=== PATIENT | male | born 1990 | race Caucasian/White ===

== ENCOUNTER 2021-08-29 15:43 | Emergency (ER) | payer BC, SELFPAY ==
--- NOTE | 2021-08-29 15:59 | ED.EXTPRO ---
HPI - Extremity Problem General Chief complaint: Extremity Problem,Nontraumatic Stated complaint: pain in both arms,Rt thigh pain, tingling in hands Time Seen by Provider: 08/29/21 15:46 Source: patient and RN notes reviewed Mode of arrival: ambulatory Limitations: no limitations History of Present Illness Complaint: extremity pain Onset (ago): hour(s) (16) Pain Consistency: constant Location: left, right and upper extremity Quality: aching Relieving factors: nothing Exacerbating factors: range of motion and palpation Associated symptoms: denies other symptoms Related Data Allergies Allergy/AdvReac Type Severity Reaction Status Date / Time No Known Allergies Allergy Verified 08/29/21 16:00 Review of Systems Constitutional: Constitutional: Denies chills, Denies fever(s) and Denies weakness Cardiovascular: Cardiovascular: Denies chest pain and Denies radiating jaw, neck or arm pain Respiratory: Respiratory: Denies cough and Denies dyspnea Gastrointestinal: Gastrointestinal: Denies diarrhea, Denies nausea and Denies vomiting Musculoskeletal: Musculoskeletal: Reports as per [facility] Past Medical History Medical History (Updated 08/29/21 @ 17:27 by Ankit Harris MD) No active medical problems Surgical History Surgical History (Updated 08/29/21 @ 16:11 by Ankit Harris MD) No pertinent past surgical history Social History Social History (Updated 08/29/21 @ 16:11 by Ankit Harris MD) Smoking status: Former smoker Alcohol intake: current Alcohol use details: Socially Substance use: never Exam Const: General: healthy appearing, no acute distress and alert Nutritional Appearance: well nourished Orientation/consciousness: patient oriented x3 HENMT: Head: normal to inspection Ears: external ears normal Face and sinus: normal facial exam Mouth: Yes moist mucous membranes Eyes: Conjunctivae: conjunctivae normal Pupils: Equal, round and reactive pupils present EOM: EOMs intact bilaterally Neck: Neck: normal visual inspection and no lymphadenopathy Resp: Effort & Inspection: normal respiratory effort Auscultation: clear to auscultation bilaterally Cardio: Rate: regular rate Rhythm: regular rhythm GI: GI Palp: Yes Soft to palpation and No Tenderness to palpation present (GI) Auscultation: normal bowel sounds Back/Spine/Pelvis: Cervical Spine: cervical ROM normal Thoracic/Lumbar Spine: thoraco-lumbar ROM normal Skin: General skin exam: normal color Rashes: no rashes Neuro: General: patient oriented x3, moves all extremities, no meningeal signs, no focal motor deficits and CN's II-XI intact bilaterally Speech: normal speech Gait exam (Neuro): Normal gait present Extrem: General: normal exam except as noted Right upper extremity: shoulder/upper arm tenderness over the biceps tendon and elbow/forearm tenderness other ( over the anterior soft tissue forearm) Left upper extremity: shoulder/upper arm tenderness over the biceps tendon and normal ROM; no swelling, no ecchymosis and no unsual warmth and elbow/forearm tenderness other ( over the anterior soft tissue forearm) and normal ROM; no unusual warmth and no ecchymosis Psych: Appearance: grossly normal and well kempt Mental Status: mental status grossly normal Affect: normal affect Attitude: cooperative Thought content: Yes Normal thought content present Course Course Emergency Course: Patient significantly improved after 60 mg IM Toradol. Vital Signs Vital signs: Vital Signs Temperature 36.9 C 08/29/21 16:01 Pulse Rate 107 H 08/29/21 16:01 Respiratory Rate 20 08/29/21 16:01 Blood Pressure 143/93 H 08/29/21 16:01 Pulse Oximetry 97 08/29/21 16:01 Temperature 36.9 C 08/29/21 16:01 Pulse Rate 98 08/29/21 17:29 Respiratory Rate 16 08/29/21 17:29 Blood Pressure 126/81 08/29/21 17:29 Pulse Oximetry 96 08/29/21 17:29 MDM - Extremity (Nontraumatic) MDM Narrative Medical decision sujit
[2021-08-29 16:01] VITALS: BP 143/93; PULSE 107; RESP 20; TEMP 36.9; O2SAT 97
[2021-08-29] MEDS: KETOROLAC (*BKC) 60 MG/2 ML VIAL IM (16:34)
[2021-08-29 16:38] LABS: Basophils Absolute Auto 0.05 K/mm3 (0.00-0.10); Basophils Percent Auto 0.6 % (0.0-1.0); Eosinophils Absolute Auto 0.04 K/mm3 (0.02-0.50); Eosinophils Percent Auto 0.5 % (1.0-6.0); Hematocrit 47.1 % (40.0-54.0); Hemoglobin 16.1 g/dL (14.0-18.0); Immature Granulocyte Absolute 0.03 K/mm3 (0.00-0.00); Immature Granulocyte Percent A 0.4 % (0.0-0.0); Lymphocytes Absolute Auto 1.43 K/mm3 (1.10-4.50); Lymphocytes Percent Auto 17.6 % (18.0-42.0); Mean Corpuscular HGB Conc 34.2 g/dL (32.0-36.0); Mean Corpuscular Hemoglobin 28.3 pg (27.0-31.0); Mean Corpuscular Volume 82.9 fL (78.0-102.0); Mean Platelet Volume 11.3 fl (8.7-11.0); Monocytes Percent Auto 8.6 % (2.0-11.0); Neutrophils Absolute Auto 5.9 K/mm3 (1.7-7.2); Neutrophils Percent Auto 72.3 % (50.0-70.0); Platelet Count Result 245 K/mm3 (150-420); Red Blood Count 5.68 M/mm3 (4.70-6.10); Red Cell Distribution Width 11.9 % (11.6-14.4); White Blood Count 8.1 K/mm3 (4.8-10.8)
[2021-08-29 16:55] LABS: Creatine Kinase 58 U/L (39-308)
[2021-08-29 16:57] LABS: Alanine Aminotransferase 66 U/L (16-63); Albumin Level 3.9 g/dL (3.4-5.0); Alkaline Phosphatase 84 U/L (46-116); Anion Gap 9 mmol/L (8-16); Aspartate Amino Transferase 27 U/L (15-37); Bilirubin,Total 0.3 mg/dL (0.00-1.00); Blood Urea Nitrogen 9 mg/dL (7-18); CRP 1.1 mg/dL (0.0-0.9); Calcium 9.2 mg/dL (8.5-10.1); Carbon Dioxide 26 mmol/L (21-32); Chloride 101 mmol/L (98-108); Estimated CRCL calculation 103 ml/min; Estimated Glomerular Filt Rate > 60; Glucose 100 mg/dL (70-99); Magnesium 1.9 mg/dL (1.8-2.4); Osmolality Calculated 280 mOsm/kg (285-295); Potassium 4.1 mmol/L (3.5-5.1); Sodium 136 mmol/L (136-145); Total Protein 8.2 g/dL (6.4-8.2)
[2021-08-29 17:14] LABS: Influenza A QL RT-PCR Negative (Negative); Influenza B QL RT-PCR Negative (Negative); SARS-CoV-2 RNA PCR Negative (Negative)
[2021-08-29 17:29] VITALS: BP 126/81; PULSE 98; RESP 16; O2SAT 96
== END 2021-08-29 17:36 | disposition home or self-care (01) ==
PROVIDERS: Emergency Provider Emergency Medicine; PCP Physician Assistant
DX: M79.10 Myalgia, unspecified site (principal); Z20.822 Contact with and (suspected) exposure to COVID-19
CPT/HCPCS: 36415; 80053; 82550; 83735; 85025; 86140; 87502; 96372; 99283; C9803; J1885; U0003; U0005

== ENCOUNTER 2022-04-29 16:16 | Emergency (ER) | payer OTHER, SELFPAY ==
[2022-04-29 16:19] VITALS: BP 138/101; PULSE 82; RESP 18; TEMP 36.9
--- NOTE | 2022-04-29 17:24 | ED.DENTAL ---
HPI - Dental/Oral General Chief complaint: Unspecified Stated complaint: tooth ache Time Seen by Provider: 04/29/22 16:20 Source: patient and RN notes reviewed Mode of arrival: ambulatory Limitations: no limitations History of Present Illness Complaint: tooth pain Location: Tooth # (32) Onset (ago): day(s) (1) Duration: constant Severity: mild Severity scale (1-10): 4 Relieving factors: NSAIDs Exacerbating factors: chewing Associated symptoms: gum swelling and ear pain Related Data Allergies Allergy/AdvReac Type Severity Reaction Status Date / Time No Known Allergies Allergy Verified 08/29/21 16:00 Review of Systems Review of Systems: All systems reviewed & are unremarkable except as noted in HPI and below Constitutional: Constitutional: Reports no additional constitutional complaints Eyes: Eyes: Reports no additional eye complaints ENT: Reports system reviewed and no additional complaints, except as documented Cardiovascular: Cardiovascular: Reports no additional cardiovascular complaints Respiratory: Respiratory: Reports no additional respiratory complaints Gastrointestinal: Gastrointestinal: Reports no additional gastrointestinal complaints Musculoskeletal: Musculoskeletal: Reports no additional musculoskeletal complaints Integumentary/Breasts: Skin/Breast: Reports system reviewed and no additional complaints, except as docu Neurologic: Reports system reviewed and no additional complaints, except as documented Psychiatric: Psychiatric: Reports no additional psychiatric complaints Endocrine: Endocrine: Reports no additional endocrine complaints Hematologic/Lymphatic: Hematologic/Lymphatic: Reports no additional hematologic/lymphatic complaints Allergic/Immunologic: Allergic/Immunologic: Reports no additional allergic/immunologic complaints PMFSH Past Medical History Medical History No active medical problems Tooth ache Surgical History Surgical History No pertinent past surgical history Social History Social History Smoking status: Former smoker Alcohol intake: current Alcohol use details: Socially Substance use: never Exam Const: General: no acute distress and well nourished Nutritional Appearance: well nourished Orientation/consciousness: patient oriented x3 Limitations: no limitations HENMT: Head: normal to inspection Ears: external ears normal, TM's normal bilaterally and EAC's normal Face/Nose/Sinus: Normal external nose present, Normal nares present, normal facial exam and sinuses nontender Face and sinus: normal facial exam and sinuses nontender Mouth: Yes Normal oral and palatal mucosa present and Yes moist mucous membranes Teeth and gingiva: dentition normal (right lower molar minimal gum redness and tenderness.) Throat: posterior oropharynx normal Eyes: Conjunctivae: conjunctivae normal Pupils: Equal, round and reactive pupils present EOM: EOMs intact bilaterally Neck: Neck: normal visual inspection, no lymphadenopathy and no meningeal signs Chest: Chest palpation & inspection: normal inspection of the chest Resp: Effort & Inspection: normal respiratory effort Auscultation: clear to auscultation bilaterally Cardio: Rate: regular rate Rhythm: regular rhythm GI: GI Palp: Yes Soft to palpation and No Tenderness to palpation present (GI) Auscultation: normal bowel sounds : General: Yes bladder normal to palpation and Yes no CVA tenderness Back/Spine/Pelvis: Back: no CVA tenderness Skin: General skin exam: normal color Rashes: no rashes Wounds: no wounds Neuro: General: patient oriented x3, moves all extremities, no meningeal signs, no focal motor deficits and CN's II-XI intact bilaterally Cranial nerves: Yes Equal, round and reactive pupils present and Yes Nystagmus not present Speech: n
[2022-04-29] MEDS: IBUPROFEN 400 MG TABLET 800 MG PO (17:35)
[2022-04-29 17:38] VITALS: BP 138/100; PULSE 82; RESP 20; TEMP 35.7; O2SAT 97
== END 2022-04-29 17:50 | disposition home or self-care (01) ==
PROVIDERS: Emergency Provider Emergency Medicine; PCP Physician Assistant
DX: K08.89 Other specified disorders of teeth and supporting structures (principal); Z87.891 Personal history of nicotine dependence
CPT/HCPCS: 99283; A9270

== ENCOUNTER 2023-05-14 18:56 | Emergency (ER) | payer OTHER, SELFPAY ==
[2023-05-14 18:56] VITALS: BP 150/102; PULSE 90; RESP 18; TEMP 35.7; O2SAT 100
--- NOTE | 2023-05-14 19:30 | ED.GENADULT ---
HPI - General Adult General Chief complaint: Anxiety Stated complaint: htn Time Seen by Provider: 05/14/23 19:10 History of Present Illness HPI narrative: Fuad is a 32m that presented to the ED with concerns of blood pressure being elevated. It was high at an urgent care visit and at a dentist appointment. He then bought a home wrist cuff that persistently read 150-160 systolic. There is CP, dyspnea, headache or lightheadedness. Related Data Home Medications Medication Instructions Recorded Confirmed amoxicillin 500 mg capsule 500 mg PO DAILY 05/14/23 05/14/23 Allergies Allergy/AdvReac Type Severity Reaction Status Date / Time No Known Allergies Allergy Verified 05/14/23 18:58 Review of Systems Review of Systems: All systems reviewed & are unremarkable except as noted in HPI and below PMFSH Past Medical History Medical History No active medical problems Tooth ache Surgical History Surgical History No pertinent past surgical history Social History Social History Smoking status: Former smoker Alcohol intake: current Alcohol use details: Socially Substance use: never Substance use type: does not use Exam Const: General: cooperative, healthy appearing, comfortable, no acute distress, well developed, alert, awake and Physically active Orientation/consciousness: oriented to person, oriented to place and oriented to time HENMT: Head: normal to inspection, normocephalic and atraumatic Ears: hearing grossly normal bilaterally and external ears normal Face/Nose/Sinus: Normal external nose present Eyes: General: appearance normal, both eyes and all related structures Periorbital: periorbital findings normal Sclera: sclerae normal Pupils: Equal, round and reactive pupils present Neck: Neck: normal visual inspection Chest: Chest palpation & inspection: normal inspection of the chest Resp: Effort & Inspection: normal respiratory effort, able to speak in complete sentences and no respiratory distress Auscultation: clear to auscultation bilaterally Cardio: Jugular venous distension: no JVD Rate: regular rate Rhythm: regular rhythm Skin: General skin exam: normal color and no rashes or lesions noted Neuro: General: oriented to person, oriented to place and oriented to time Cranial nerves: Yes Equal, round and reactive pupils present Extrem: General: normal to inspection Course Course Emergency Course: manual BP was 142/70 Vital Signs Vital signs: Vital Signs Temperature 96.3 F L 05/14/23 18:56 Pulse Rate 90 05/14/23 18:56 Respiratory Rate 18 05/14/23 18:56 Blood Pressure 150/102 H 05/14/23 18:56 Pulse Oximetry 100 05/14/23 18:56 Oxygen Delivery Room Air 05/14/23 18:56 Temperature 96.3 F L 05/14/23 18:56 Pulse Rate 90 05/14/23 18:56 Respiratory Rate 18 05/14/23 18:56 Blood Pressure 150/102 H 05/14/23 18:56 Pulse Oximetry 100 05/14/23 18:56 Oxygen Delivery Room Air 05/14/23 18:56 Medical Decision Making Vital Signs Vital Signs: Vital Signs Temperature 96.3 F L 05/14/23 18:56 Pulse Rate 90 05/14/23 18:56 Respiratory Rate 18 05/14/23 18:56 Blood Pressure 150/102 H 05/14/23 18:56 Pulse Oximetry 100 05/14/23 18:56 Oxygen Delivery Room Air 05/14/23 18:56 Temperature 96.3 F L 05/14/23 18:56 Pulse Rate 90 05/14/23 18:56 Respiratory Rate 18 05/14/23 18:56 Blood Pressure 150/102 H 05/14/23 18:56 Pulse Oximetry 100 05/14/23 18:56 Oxygen Delivery Room Air 05/14/23 18:56 Discharge Plan Discharge Clinical Impression: Essential hypertension Patient Disposition: Home, Self-Care Condition: Stable Instructions: DASH Eating Plan (ED) Prescriptions: New lisinopril 10 mg tablet 10 mg PO DAILY Qty: 20 0RF lisino
--- NOTE | 2023-05-14 19:39 | PC.NURSE ---
Manual BP taken at 142/[address] Cameron. Explained POC for f/u c pt and he stated understanding.
[2023-05-14 19:41] VITALS: BP 142/70; PULSE 84; RESP 18; O2SAT 98
== END 2023-05-14 19:44 | disposition home or self-care (01) ==
PROVIDERS: Emergency Provider Family Medicine; PCP Physician Assistant
DX: I10 Essential (primary) hypertension (principal); Z87.891 Personal history of nicotine dependence
CPT/HCPCS: 99283

== ENCOUNTER 2023-11-16 11:06 | Emergency (ER) | payer OTHER, SELFPAY ==
[2023-11-16 11:08] VITALS: BP 160/105; PULSE 84; RESP 20; TEMP 36.5; O2SAT 99
--- NOTE | 2023-11-16 12:43 | ED.GENADULT ---
HPI - General Adult General Chief complaint: Unspecified Stated complaint: trouble swallowing Time Seen by Provider: 11/16/23 11:32 History of Present Illness HPI narrative: This is a 32-year-old male with history of anxiety presenting difficulty swallowing. Patient says he is having difficulty swallowing foods for years. He has no difficulty swallowing liquids and says he can chug a beer here with ease. Patient has been seen by primary care physician for this since been referred to a GI but is concerned because the GI appointment is not for 3 months. Patient says the biggest difficulty is initiating the swallow his he feels like he will choke. This causes significant anxiety. He has had some weight loss but he attributes this that his eating significantly less. Related Data Home Medications Medication Instructions Recorded Confirmed amoxicillin 500 mg capsule 500 mg PO DAILY 05/14/23 05/14/23 Allergies Allergy/AdvReac Type Severity Reaction Status Date / Time No Known Allergies Allergy Verified 11/16/23 11:10 [facility] Past Medical History Medical History No active medical problems Tooth ache Surgical History Surgical History No pertinent past surgical history Social History Social History Smoking status: Former smoker Alcohol intake: current Alcohol use details: Socially Substance use: never Substance use type: does not use Exam Narrative: APPEARANCE: No apparent distress. Head: atraumatic. EYES: EOMI, NOSE: Atraumatic NECK: Trachea midline RESPIRATORY: No increased rate of breathing Clear to auscultation CARDIOVASCULAR: RRR, ABDOMINAL: Non-distended soft nontender MUSCULOSKELETAl: No obvious deformities NEURO: Alert. Moving 4/4 extremities SKIN:: Warm, dry. Normal color PSYCHIATRIC: Normal affect Course Vital Signs Vital signs: Vital Signs Temperature 97.7 F 11/16/23 11:08 Pulse Rate 84 11/16/23 11:08 Respiratory Rate 20 11/16/23 11:08 Blood Pressure 160/105 H 11/16/23 11:08 Pulse Oximetry 99 11/16/23 11:08 Oxygen Delivery Room Air 11/16/23 11:08 Temperature 97.7 F 11/16/23 11:08 Pulse Rate 84 11/16/23 11:08 Respiratory Rate 20 11/16/23 11:08 Blood Pressure 160/105 H 11/16/23 11:08 Pulse Oximetry 99 11/16/23 11:08 Oxygen Delivery Room Air 11/16/23 11:08 Medical Decision Making MDM Narrative Medical decision making narrative: -Course: 32-year-old male presenting with difficulty swallowing. This is a chronic condition. No emergent actions to be taken. patient can follow-up with the GI physician. Given return precautions. -DDX includes but is not limited to: esophageal stricture, esophageal motility issues, anxiety -Co-morbidities complicating care: anxiety Vital Signs Vital Signs: Vital Signs Temperature 97.7 F 11/16/23 11:08 Pulse Rate 84 11/16/23 11:08 Respiratory Rate 20 11/16/23 11:08 Blood Pressure 160/105 H 11/16/23 11:08 Pulse Oximetry 99 11/16/23 11:08 Oxygen Delivery Room Air 11/16/23 11:08 Temperature 97.7 F 11/16/23 11:08 Pulse Rate 84 11/16/23 11:08 Respiratory Rate 20 11/16/23 11:08 Blood Pressure 160/105 H 11/16/23 11:08 Pulse Oximetry 99 11/16/23 11:08 Oxygen Delivery Room Air 11/16/23 11:08 Discharge Plan Discharge Clinical Impression: Dysphagia Patient Disposition: Home, Self-Care Condition: Stable Instructions: Antibiotic Form, Chronic Dysphagia (DC) Additional Instructions: please follow-up with your primary care physician and GI physician. Please address her anxiety with her primary care physician. Return to ED if you feel your condition is getting worse Prescriptions: No Action amoxicillin 500 mg capsule 500 mg PO DAILY lisinopril 10 mg tablet 10 m
[2023-11-16 13:00] VITALS: BP 144/86; PULSE 94; RESP 18; O2SAT 100
== END 2023-11-16 13:04 | disposition home or self-care (01) ==
PROVIDERS: Emergency Provider Emergency Medicine; PCP Physician Assistant
DX: R13.10 Dysphagia, unspecified (principal); F41.9 Anxiety disorder, unspecified; Z87.891 Personal history of nicotine dependence; Z79.899 Other long term (current) drug therapy
CPT/HCPCS: 99281